=== PATIENT | female | born 1995 | race African-American/Black ===

== ENCOUNTER 2016-07-31 10:42 | Emergency (ER) | payer MEDICAID ==
[~2016-07-31] VITALS: Ht 165.1 cm; Wt 81.2 kg
[2016-07-31 10:51] VITALS: BP 130/73
[2016-07-31] MEDS ORDERED: PHENAZOPYRIDINE HCL 100 MG TAB PO ONE (12:00)
== END 2016-07-31 12:36 | disposition home or self-care (01) ==
LOC: ER 10:42
DX: N39.0 Urinary tract infection, site not specified (principal); B02.9 Zoster without complications

== ENCOUNTER 2017-05-12 21:34 | Inpatient (IN) | payer MEDICAID ==
[~2017-05-12] VITALS: Ht 165.1 cm; Wt 90.3 kg
[2017-05-12] MEDS ORDERED: LACTATED RINGER'S 1,000 ML IV ONE (22:20)
[2017-05-12] MEDS ORDERED: LACTATED RINGER'S 1,000 ML IV SCH (22:20)
[2017-05-12 22:56] LABS: Basophils # (auto) 0.1 uL; Eosinophils # (auto) 0.4 uL; Red Cell Distribution Width 16.1 % (11.8-14.3)
[2017-05-12 22:58] LABS: Basophils % (auto) 0.6 % (0.0-2.0); Hematocrit 29.4 % (36.0-46.0); Hemoglobin 9.6 g/dL (12.2-16.2); Lymphocytes # (auto) 2.1 uL; Lymphocytes % (auto) 18.6 % (10.0-50.0); Mean Corpuscular Hemoglobin 24.9 pg (28.0-32.0); Mean Corpuscular Hgb Conc. 32.5 g/dL (32.0-36.0); Mean Corpuscular Volume 76.5 fL (80.0-100.0); Monocytes # (auto) 0.9 uL; Monocytes % (auto) 7.7 % (0.0-12.0); Neutrophils # (auto) 7.7 uL; Neutrophils % (auto) 69.1 % (37.0-80.0); Nucleated Red Blood Cells % 0.1 %; Platelet Count (auto) 228 10^3/uL (140-450); Red Blood Cells 3.85 10^6/uL (4.0-5.20); White Blood Cell 11.2 10^3/uL (4.4-10.8)
[2017-05-12 23:14] LABS: INR 0.95 (0.9-1.15); Partial Thromboplastin Time 28.5 sec (22.64-33.71); Prothrombin Time 10.4 sec (9.37-12.3)
[2017-05-12 23:19] LABS: Albumin 2.5 g/dL (3.4-5.0); BUN/Creatinine Ratio 17.4; Potassium 3.6 mmol/L (3.5-5.1)
[2017-05-12 23:32] LABS: Bilirubin, Total 0.2 mg/dL (0.2-1.0)
[2017-05-12] MEDS ORDERED: SUCCINYLCHOLINE CHLORIDE 20 MG/ML 10ML VIAL IV ONE (23:39)
[2017-05-12] MEDS ORDERED: TETRACAINE 1% INJ 2 ML VIAL IJ ONE (23:39)
[2017-05-12] MEDS ORDERED: OXYTOCIN 10 UNIT/ML 10ML VIAL ONE (23:42)
[2017-05-12] MEDS ORDERED: ceFAZolin 1GM VL ONE (23:42)
[2017-05-12] MEDS ORDERED: MIDAZOLAM HCL 1MG/1ML-2 ML VIAL ONE (23:42)
[2017-05-12] MEDS ORDERED: SODIUM CHLORIDE LOCK 10 ML ONE (23:42)
[2017-05-12] MEDS ORDERED: MORPHINE SULF(PF) 0.5MG/ML 10ML VIAL ONE (23:42)
[2017-05-12] MEDS ORDERED: fentaNYL CITRATE 100 MCG/2 ML VL ONE (23:42)
[2017-05-12 23:59] LABS: Urine Bacteria NONE SEEN /hpf (None Seen); Urine Blood Negative /uL (Negative); Urine Mucus FEW (None Seen); Urine Specific Gravity 1.017 (1.001-1.035); Urine WBC 1 /hpf (0 - 5)
[2017-05-13] VITALS (16 sets, daily range): BP systolic 101–132; BP diastolic 52–91
[2017-05-13 00:49] LABS: Alcohol, Urine < 3.0 mg/dL (0-5); Amphetamine Screen, Urine NEGATIVE (NEGATIVE); Barbiturate Scree,Urine NEGATIVE (NEGATIVE); Benzodiazephine Screen, Urine NEGATIVE (NEGATIVE); Cannabinoid Screen, Urine POSITIVE (NEGATIVE); Cocaine Screen, Urine NEGATIVE (NEGATIVE); Opiate Scree,Urine NEGATIVE (NEGATIVE); Phencyclidine Screen, Urine NEGATIVE (NEGATIVE)
[2017-05-13] MEDS: LACTATED RINGER'S 1,000 ML IV SCH ×3 (01:29→17:29)
[2017-05-13] MEDS ORDERED: ONDANSETRON HCL 4 MG/2 ML VIAL IV PRN (01:30)
[2017-05-13] MEDS ORDERED: HYDROmorphone HCL 2 MG/ML VL IV PRN ×2 (01:30→01:45)
[2017-05-13] MEDS ORDERED: ceFAZolin 1GM/50ML 50 ML IV SCH (01:30)
[2017-05-13] MEDS ORDERED: KETOROLAC TROMETH 30 MG/ML 1ML VIAL IV ONE (01:45)
[2017-05-13] MEDS ORDERED: METOCLOPRAMIDE HCL 5MG/ml INJ 2ml VIAL IV ONE (01:45)
[2017-05-13] MEDS ORDERED: LACT. RINGERS/OXYTOCIN 20UNITS 1,000 ML IV ONE (02:28)
[2017-05-13] MEDS ORDERED: KETOROLAC TROMETH 30 MG/ML 1ML VIAL IV SCH (06:00)
[2017-05-13] MEDS: KETOROLAC TROMETH 30 MG/ML 1ML VIAL IV SCH ×3 (08:05→20:21)
[2017-05-13] MEDS: ceFAZolin 1GM/50ML 50 ML IV SCH ×2 (09:00→17:00)
[2017-05-14] MEDS: ceFAZolin 1GM/50ML 50 ML IV SCH (01:09)
[2017-05-14] MEDS: LACTATED RINGER'S 1,000 ML IV SCH ×2 (01:29→09:29)
[2017-05-14] MEDS: KETOROLAC TROMETH 30 MG/ML 1ML VIAL IV SCH ×2 (02:00→03:15)
[2017-05-14 03:06] LABS: RPR Non Reactive (Non Reactive)
[2017-05-14 03:30] VITALS: BP 124/73
[2017-05-14] MEDS ORDERED: BISACODYL 10 MG RECT SUPP PR PRN (06:30)
[2017-05-14] MEDS ORDERED: HYDROcodone-ACET 5/325MG TAB PO PRN (06:30)
[2017-05-14 06:45] LABS: Basophils # (auto) 0.1 uL; Basophils % (auto) 0.6 % (0.0-2.0); Lymphocytes # (auto) 2.8 uL; Mean Corpuscular Hgb Conc. 32.6 g/dL (32.0-36.0); Monocytes # (auto) 0.9 uL
[2017-05-14 06:48] LABS: Eosinophils # (auto) 0.6 uL; Eosinophils % (auto) 4.9 % (0.0-7.0); Hematocrit 26.4 % (36.0-46.0); Hemoglobin 8.6 g/dL (12.2-16.2); Lymphocytes % (auto) 24.6 % (10.0-50.0); Mean Corpuscular Hemoglobin 24.7 pg (28.0-32.0); Mean Corpuscular Volume 75.9 fL (80.0-100.0); Monocytes % (auto) 7.9 % (0.0-12.0); Neutrophils # (auto) 7.1 uL; Platelet Count (auto) 195 10^3/uL (140-450); Red Blood Cells 3.48 10^6/uL (4.0-5.20); Red Cell Distribution Width 15.6 % (11.8-14.3); White Blood Cell 11.5 10^3/uL (4.4-10.8)
[2017-05-14 08:30] VITALS: BP 114/62
[2017-05-14] MEDS: IBUPROFEN 800 MG TAB PO PRN ×3 (09:18→17:00)
[2017-05-14] MEDS: DOCUSATE SOD 100 MG CAP PO SCH ×2 (10:20→21:43)
[2017-05-14] MEDS: HYDROcodone-ACET 5/325MG TAB PO PRN ×3 (10:20→20:40)
[2017-05-14] MEDS: DOCUSATE CALCIUM 240 MG CAP PO SCH (10:20)
[2017-05-14 12:00] VITALS: BP 120/70
[2017-05-14] MEDS: SIMETHICONE 80 MG CHEWABLE TABLET PO SCH ×2 (12:00→21:44)
[2017-05-14 12:06] LABS: Rubella Antibodies, IgG <0.90 index (Immune >0.99)
[2017-05-14 16:00] VITALS: BP 120/65
[2017-05-14 18:30] VITALS: BP 124/76
[2017-05-14 23:30] VITALS: BP 109/51
[2017-05-15] MEDS: HYDROcodone-ACET 5/325MG TAB PO PRN ×4 (01:06→21:10)
[2017-05-15] MEDS: IBUPROFEN 800 MG TAB PO PRN ×2 (03:15→22:12)
[2017-05-15 03:30] VITALS: BP 120/63
[2017-05-15] MEDS: SIMETHICONE 80 MG CHEWABLE TABLET PO SCH ×4 (05:51→22:12)
[2017-05-15 08:00] VITALS: BP 118/58
[2017-05-15] MEDS: DOCUSATE CALCIUM 240 MG CAP PO SCH (10:02)
[2017-05-15] MEDS: DOCUSATE SOD 100 MG CAP PO SCH ×2 (10:02→22:12)
[2017-05-15 12:00] VITALS: BP 114/63
[2017-05-15 16:00] VITALS: BP 135/75
[2017-05-15 19:30] VITALS: BP 130/73
[2017-05-15 23:00] VITALS: BP 137/76
[2017-05-16] MEDS: HYDROcodone-ACET 5/325MG TAB PO PRN (02:10)
[2017-05-16 03:00] VITALS: BP 125/78
[2017-05-16] MEDS: IBUPROFEN 800 MG TAB PO PRN (05:47)
[2017-05-16] MEDS: SIMETHICONE 80 MG CHEWABLE TABLET PO SCH (05:47)
[2017-05-16 07:16] VITALS: BP 120/69
[2017-05-16] MEDS: DOCUSATE SOD 100 MG CAP PO SCH (10:00)
[2017-05-16] MEDS: DOCUSATE CALCIUM 240 MG CAP PO SCH (10:00)
[2017-05-16 11:00] VITALS: BP 109/78
[2017-05-16 15:12] VITALS: BP 122/76
== END 2017-05-16 15:15 | disposition home or self-care (01) | DRG 540 ==
LOC: LDRP 21:34 → OBSVTOIN 21:34 → LDRP 05-13 08:42
PROVIDERS: ADMIT Specialist; ATTEND Specialist
PROC: 10D00Z1 Extraction of Products of Conception, Low, Open Approach (ICD-10-PCS; principal; 2017-05-13 00:20)
DX: O34.211 Maternal care for low transverse scar from previous cesarean delivery (principal); O77.0 Labor and delivery complicated by meconium in amniotic fluid; Z37.0 Single live birth; Z3A.40 40 weeks gestation of pregnancy
CPT/HCPCS: 36415; 51702; 59025; 76805; 80053; 80307; 81001; 85025; 85610; 85730; 86592; 86762; 86850; 86900; 86901; 87340; 96365; 96366; 96374; 96375; J0330; J0690; J1885; J2250; J2590